=== PATIENT | female | born 1965 | race Hispanic/Latino ===

== ENCOUNTER 2023-07-12 17:44 | Emergency (ER) | payer SELFPAY ==
[2023-07-12 17:46] VITALS: BP 169/89; PULSE 99; RESP 24; TEMP 36.6; O2SAT 99; BMI 31.2
--- NOTE | 2023-07-12 17:57 | DI.RAD.S_ITS ---
PROCEDURE: XR TIBIA FIBULA LT 2V INDICATIONS: fell down stairs; injured Left lower leg and R shoulder TECHNIQUE: 2 views of the tibia and fibula were acquired. COMPARISON: None. FINDINGS: Bones: No fracture of the tibial or fibular shafts. Partially visualized knee joint is congruent. Soft tissues: No suspicious soft tissue calcifications. Foot and ankle findings are separately dictated. IMPRESSION: No displaced fracture of the tibial or fibular shafts. If there is high concern for occult injury, consider repeat radiography or cross-sectional imaging. Dictated by: Julien Madrigal M.D. on 07/12/2023 at 19:05 Approved by: Julien Madrigal M.D. on 07/12/2023 at 19:06
--- NOTE | 2023-07-12 17:57 | DI.RAD.S_ITS ---
PROCEDURE: XR SHOULDER RT MIN 2V INDICATIONS: fell down stairs; injured Left lower leg and R shoulder TECHNIQUE: 3 views of the shoulder were acquired. COMPARISON: None. FINDINGS: Bones: Moderate acromioclavicular and mild glenohumeral degenerative changes. No displaced fracture or dislocation. Soft tissues: No suspicious calcifications. IMPRESSION: Degenerative changes. No acute radiographic abnormality. If there is high concern for occult injury, consider repeat radiography or cross-sectional imaging. Dictated by: Julien Madrigal M.D. on 07/12/2023 at 19:02 Approved by: Julien Madrigal M.D. on 07/12/2023 at 19:03
--- NOTE | 2023-07-12 17:57 | DI.RAD.S_ITS ---
PROCEDURE: XR FOOT LT MIN 3V INDICATIONS: fell down stairs; injured Left lower leg and R shoulder TECHNIQUE: 3 views of the foot were acquired. COMPARISON: None. FINDINGS: Bones: No displaced fracture or dislocation. Plantar calcaneal enthesopathy. Soft tissues: A tiny hyperdensity is adjacent to the 5th metatarsal base. IMPRESSION: Tiny hyperdensity seen adjacent to the 5th metatarsal base on lateral view, correlate with any point tenderness in this location. This is age indeterminate and could represent an avulsion injury. Plantar calcaneal enthesopathy. If there is high concern for occult injury, consider repeat radiography or cross-sectional imaging. Dictated by: Julien Madrigal M.D. on 07/12/2023 at 19:03 Approved by: Julien Madrigal M.D. on 07/12/2023 at 19:04
--- NOTE | 2023-07-12 17:57 | DI.RAD.S_ITS ---
PROCEDURE: XR ANKLE LT MIN 3V INDICATIONS: fell down stairs; injured Left lower leg and R shoulder TECHNIQUE: 3 views of the ankle were acquired. COMPARISON: None. FINDINGS: Bones: Ankle mortise appears intact. No displaced fracture is identified. Plantar calcaneal enthesopathy. Possible ossicle adjacent to the cuboid. Soft tissues: No suspicious calcifications. IMPRESSION: No acute radiographic abnormality. If there is high concern for occult injury, consider repeat radiography or cross-sectional imaging. Possible bone fragment or ossicle adjacent to the cuboid. Approved by: Julien Madrigal M.D. on 07/12/2023 at 19:09
[2023-07-12] MEDS: HYDROMORPHONE 0.5 MG INJ IV (18:05)
--- NOTE | 2023-07-12 20:12 | DI.CT.S_ITS ---
PROCEDURE: CT CERVICAL SPINE WO CON INDICATIONS: neck injury midline tender TECHNIQUE: Noncontrast 3 mm thick sections acquired from the skull base to the T4 level. Sagittal and coronal reformats were then constructed. For radiation dose reduction, the following was used: automated exposure control, adjustment of mA and/or kV according to patient size. COMPARISON: None. FINDINGS: Image quality: Excellent. Bones: No fractures or dislocations. Visualized superior ribs are intact. Soft tissues: Prevertebral soft tissues are normal in thickness. No paravertebral hematomas. No apical pneumothoraces. IMPRESSION: No displaced fracture or traumatic subluxation. Dictated by: Magdalena Levy M.D. on 07/12/2023 at 21:06 Approved by: Magdalena Levy M.D. on 07/12/2023 at 21:07
--- NOTE | 2023-07-12 20:13 | ED.LOWEXIN ---
HPI - Extremity Injury (Lower) General Chief Complaint: Extremity Injury, Lower Stated Complaint: Fall,right foot and right shoulder pain Time Seen by Provider: 07/12/23 20:12 Source: patient, family and EMS Mode of arrival: EMS History of Present Illness HPI Narrative: This is a 58-year-old female who speaks Maltese. History is obtained from EMS, from the patient with the assistance of her daughter who is present and acting as an hand binder cutter. Patient fell down some steps today. Was holding a toddler at the time and protected the child. Now has pain in her right foot and right shoulder also the right scapular region and neck. She is a type 2 diabetic, she is not anticoagulated. She did not hit her head. No focal numbness or weakness. Related Data Previous Rx's Medication Instructions Recorded hydrocodone 5 mg-acetaminophen 325 1 tab PO Q6H PRN pain #10 tabs 07/13/23 mg tablet ibuprofen 600 mg tablet 600 mg PO TID #30 tabs 07/13/23 Allergies Allergy/AdvReac Type Severity Reaction Status Date / Time No Known Drug Allergies Allergy Verified 07/12/23 17:46 Patient History Social History Smoking Status: Never smoker Smoking Status: Never smoker Substance Use Type: does not use Exam Initial Vital Signs Initial Vital Signs: Vital Signs Temperature 97.9 F 07/12/23 17:46 Pulse Rate 99 H 07/12/23 17:46 Respiratory Rate 24 07/12/23 17:46 Blood Pressure 169/89 H 07/12/23 17:46 Pulse Oximetry 99 07/12/23 17:46 Oxygen Delivery Method Room Air 07/12/23 17:46 Course Orders Ordered: ED Orders 07/12/23 21:34 XR chest 1V Stat XR scapula RT Stat Discontinued Medications Hydrocodone Bitart/Acetaminophen (Hydrocodone/Acet 5/325 Prepack) 1 bottle MISC DIRECTED ONE Stop: 07/13/23 01:15 Last Admin: 07/13/23 01:27 Dose: 1 bottle Documented By: BARRINGTON Hydromorphone HCl (Hydromorphone 0.5 Mg Inj) 0.5 mg IV NOW ONE Stop: 07/12/23 17:57 Last Admin: 07/12/23 18:05 Dose: 0.5 mg Documented By: WALTER Ketorolac Tromethamine (Ketorolac 30 Mg/Ml Vial) 15 mg IV NOW ONE Stop: 07/12/23 21:35 Last Admin: 07/12/23 22:05 Dose: 15 mg Documented By: BARRINGTON Oxycodone HCl (Oxycodone Ir 5 Mg Tablet) 5 mg PO NOW ONE Stop: 07/12/23 21:35 Last Admin: 07/12/23 22:06 Dose: 5 mg Documented By: BARRINGTON Vital Signs Vital signs: Vital Signs - 8 hr 07/13/23 01:30 Pulse Rate 74 Respiratory Rate 95 H Blood Pressure 138/78 Pulse Oximetry 98 Oxygen Delivery Method Room Air MDM - Extremity Injury (Lower) Lab Data Labs: Point of Care Testing Glucose POC [address] - cervical spine: My Impression: No acute findings Radiologist's Impression: No fracture or dislocation Chest x-ray: My Impression: No acute findings Radiologist's Impression: Radiology reported no acute cardiopulmonary disease Plain films of right ankle tib-fib and foot: My Impression: No fracture seen MDM Narrative Medical decision making narrative: 58-year-old female with a fall on stairs presenting with lower extremity and shoulder pain. No head injury, no fractures or dislocations identified on numerous x-rays she remained hemodynamically stable throughout. Cervical spine was imaged and was negative. She was discharged home on analgesia and rest. She is to follow up with her primary care provider symptoms persist indications for return to the emergency department were reviewed. Discharge Plan Departure Patient Disposition: Home Clinical Impression: Fall (on) (from) other stairs and steps, initial encounter, Ankle sprain and strain Muscle strain of right shoulder Qualifiers: Encounter type: initial encounter Qualified Code(s): S46.911A - Strain of unspecified muscle, fascia and tendon at shoulder and upper arm level, right arm, initial encounter Activity Restrictions/Additional Instructions: Activity as tolerated. Expect to be stiff and sore for several days. Use ibuprofen 600 mg 3 times a day and I provided a prescription for a few [facility] to use as needed for more severe pain. If you are having uncontrolled pain, vomiting severe headache shortness of breath or other acute symptoms return to the emergency department. Prescriptions: New ibuprofen 600 mg tablet 600 mg PO TID Qty: 30 0RF hydrocodone-acetaminophen 5-325 mg tablet 1 tab PO Q6H PRN (Reason: pain) Qty: 10 0RF Stand Alone Forms: Patient Portal/API
--- NOTE | 2023-07-12 21:34 | DI.RAD.S_ITS ---
PROCEDURE: XR CHEST 1V INDICATIONS: chest wall pain TECHNIQUE: One view of the chest was acquired. COMPARISON: None. FINDINGS: Surgical changes and devices: None. Lungs and pleura: Lungs are clear. No pleural effusions or pneumothorax. Mediastinum: Mediastinal contours appear normal. Heart size is minimally prominent. Bones and chest wall: No suspicious bony lesions. Overlying soft tissues appear unremarkable. IMPRESSION: No acute pulmonary process. Dictated by: Magdalena Levy M.D. on 07/12/2023 at 22:13 Approved by: Magdalena Levy M.D. on 07/12/2023 at 22:13
--- NOTE | 2023-07-12 21:34 | DI.RAD.S_ITS ---
PROCEDURE: XR SCAPULA RT INDICATIONS: scapular pain, trauma TECHNIQUE: 2 views of the scapula were acquired. COMPARISON: None. FINDINGS: Bones: There is slight irregularity of the lateral scapula not well seen on all views. No suspicious bony lesions. Visualized ribs appear intact. Soft tissues: Overlying soft tissues appear normal. IMPRESSION: Slight irregularity of the lateral scapula not well seen on all views. Recommend correlation point tenderness as man displaced fracture cannot be definitively excluded. Dictated by: Magdalena Levy M.D. on 07/12/2023 at 22:13 Approved by: Magdalena Levy M.D. on 07/12/2023 at 22:15
[2023-07-12] MEDS: KETOROLAC 30 MG/ML VIAL 15 MG IV (22:05)
[2023-07-12] MEDS: OXYCODONE IR 5 MG TABLET PO (22:06)
[2023-07-13] MEDS: HYDROCODONE/ACET 5/325 PREPACK 1 BOTTLE MISC (01:27)
[2023-07-13 01:30] VITALS: BP 138/78; PULSE 74; RESP 95; O2SAT 98
== END 2023-07-13 01:35 | disposition home or self-care (01) ==
PROVIDERS: Emergency Provider Emergency Medicine
DX: S93.402A Sprain of unspecified ligament of left ankle, initial encounter (principal); S96.912A Strain of unspecified muscle and tendon at ankle and foot level, left foot, initial encounter; S46.911A Strain of unspecified muscle, fascia and tendon at shoulder and upper arm level, right arm, initial encounter; W10.9XXA Fall (on) (from) unspecified stairs and steps, initial encounter
CPT/HCPCS: 36415; 71045; 72125; 73010; 73030; 73590; 73610; 73630; 82962; 96374; 96375; 99284; J1170; J1885